=== PATIENT | male | born 1980 | race Hispanic/Latino ===

== ENCOUNTER 2016-12-21 09:46 | Day surgery (SDC) | payer OTHER ==
[~2016-12-21] VITALS: Ht 172.7 cm; Wt 102.5 kg
[~2016-12-21 09:46] MED LIST: 0.9% Sodium Chloride 1,000 ML IV SCH; OMEP20CA11 PO; Sodium Chloride LOK Flush 10 mL Syringe IV PRN; fentaNYL-PF 50 mCg/mL 2 mL Inj IVPUSH PRN
[2016-12-21 10:05] VITALS: BP 136/86; PULSE 65; RESP 14; O2SAT 96
--- NOTE | 2016-12-21 10:59 | PCM.ENDEGD ---
EGD Date of Service: Dec 21, 2016 Physician Jp Maher MD Pre Procedure Diagnosis: Abdominal pain and bloating Post Procedure Dx & Findings: Gastritis Procedure Esophagogastroduodenoscopy PROCEDURE IN DETAIL: After proper sedation, Olympus video endoscope was inserted into patient's mouth and esophagus was successfully intubated. Scope introduced esophagus. Esophagus showed normal shiny whitish mucosa consistent with squamous cell component. Z line was intact at 40 cm from the incisors. Scope further advanced to the stomach. Stomach showed normal shiny mucosa with normal appearing rugae folds without any ulcer mass erosion up to the body and the fundus. Patient is antrum showed some atrophy of redness consistent with atrophic gastritis. Cardia fundus body antrum pylorus were all visualized. Retroflexion was done. Stomach was easily inflated and deflatable using air. Scope further events to the distal duodenum. Duodenum revealed normal villous structures with normal appearing folds without any mass ulcer erosion. 5 duodenal biopsies obtained for rule out celiac disease due to patient's abdominal pain and bloating. Impression Atrophic gastritis Recommendation Resume omeprazole Presedation Assessment Risks and Benefits Informed consent was obtained from the patient after all risks and benefits including but not limited to drug reaction, infection, pain, bleeding, perforation, as well as alternatives were discussed. Patient monitoring Continuous pulse oximetry, cardiac monitoring, blood pressure monitoring, IV access, and oxygen at 2L per nasal cannula. Periprocedural Fentanyl: Fentanyl 100mcg Incrementally Midazolam: Midazolam 4mg Incrementally Complications There were no periprocedural complications identified. Post Procedure Plan Post Procedure Recommendations 1. Restrict activities today. 2. Resume normal activities in the morning. 3. Resume medications. 4. GERD behavioral modification: - Avoid fatty, acidic, spicy, large meals - Do not lie down after meals - Do not eat or drink anything for at least 2 1/2 hours before going to bed at night - Discontinue tobacco and alcohol - Decrease or avoid caffeine - Avoid chocolate and mints - Decrease weight - Avoid aspirin and non steroidal anti-inflammatory agents (NSAID) such as Aleve, Advil, Mobic, Naproxen, Ibuprofen, etc 5. Add proton pump inhibitor. Take 30 minutes before 1st meal of the day. 6. Patient informed of normal post procedure side effects as bloating, drowsiness, blood streaking in the stool 7. If gastric biopsy reveal H.pylori, continue with appropriate treatment 8. If small bowel biopsy reveals celiac, continue with appropriate treatment 9. Please don't hesitate to call me with any questions Jp Maher MD Dec 21, 2016 10:59
[2016-12-21 11:01] VITALS: BP 126/82; PULSE 64; RESP 16; O2SAT 96
[2016-12-21 11:11] VITALS: BP 121/78; PULSE 59; RESP 16; O2SAT 98
[2016-12-21 11:18] VITALS: BP 111/77; PULSE 62; RESP 16; O2SAT 98
--- NOTE | 2016-12-22 13:45 | PATH ---
SURGICAL PATHOLOGY Attending Physician:Jp Maher M.D. CASE STATUS: Signed Out PATIENT NAME: RUEL HAN PID: [id number] : 1980 DATE COLLECTED:12/21/2016 17:27 SPECIMEN: 1: Duodenum, Biopsy 2: Gastric, Biopsy CLINICAL HISTORY: 1). RANDOM DUODENAL BIOPSY 2). RANDOM GASTRIC BIOPSY FINAL DIAGNOSIS: 1.RANDOM DUODENAL BIOPSIES: FRAGMENTS OF NORMAL-APPEARING DUODENAL MUCOSA. Normal delicate mucosal villi present. Negative for significant inflammation, dysplasia and malignancy. 2.RANDOM GASTRIC BIOPSIES: MILD CHRONIC GASTRITIS INVOLVING FUNDIC AND ANTRAL MUCOSA. Negative for evidence of Helicobacter. Negative for intestinal metaplasia. Negative for dysplasia and malignancy. ICD10 code K29.70 GROSS DESCRIPTION: The specimen is received in two formalin filled containers labeled with the patient's name. 1). The specimen is sublabeled "random duodenal" and consists of 3 tiny portions of tissue which aggregate to 0.3 x 0.3 x 0.2 CM. The specimen is entirely submitted in cassette 1A. 2). The specimen is sublabeled "gastric" and consists of 2 portions of tissue which aggregate to 0.3 x 0.3 x 0.2 CM. The specimen is entirely submitted in cassette 2A. 12/21/2016 [facility] MICRO DESCRIPTION: See diagnosis. ICD-9 CODES: CPT CODES: 1: 43185 2: 21567 Electronically Signed Out Preston Riggs MD [facility] Pathology [facility] [address], [place] [address] Technical component performed at [facility], [address] [place] [address] [address], [address]
== END 2016-12-21 23:59 | disposition home or self-care (01) ==
LOC: END 09:46 → MERGE 13:00 → END 23:59
PROVIDERS: ATTEND Internal Medicine
DX: K29.40 Chronic atrophic gastritis without bleeding (principal); K21.9 Gastro-esophageal reflux disease without esophagitis
CPT/HCPCS: 43239; G0500; J7030